=== PATIENT | female | born 1950 | race African-American/Black ===

== ENCOUNTER 2019-05-29 18:03 | Emergency (ER) | payer OTHER ==
[~2019-05-29] VITALS: Ht 162.6 cm; Wt 64.9 kg
[2019-05-29] MEDS ORDERED: CARVEDILOL25 MG PO (18:21)
[2019-05-29 18:46] LABS: ABSOLUTE BASOPHILS 0.1 thou/uL (0.0-0.2); ABSOLUTE EOSINOPHILS 0.2 thou/uL (0.0-0.7); ABSOLUTE LYMPHOCYTES 1.8 thou/uL (0.8-5.3); ABSOLUTE MONOCYTES 0.8 thou/uL (0.0-1.2); ABSOLUTE NEUTROPHILS 5.8 thou/uL (1.6-8.1); BASOPHILS 1.1 %; EOSINOPHILS 1.9 %; HEMATOCRIT 42.4 % (37.0-47.0); HEMOGLOBIN 14.3 gm/dL (12.0-15.0); LYMPHOCYTES 20.5 %; MCHC 33.7 g/dL (28.0-37.0); MCV 80.2 fL (80.0-100.0); MPV 9.5 fl. (7.2-11.1); NUCLEATED RBCS 0 /100WBC; PLATELET COUNT* 305 thou/uL (150-400); POLYS 67.5 %; RBC 5.29 mil/uL (4.20-5.00); RDW-CV 13.5 % (10.5-14.5); WBC 8.6 thou/uL (4.0-11.0)
[2019-05-29 18:55] LABS: CREATININE 1.3 mg/dL (0.6-1.3); POTASSIUM 3.4 mmol/L (3.5-5.1)
[2019-05-29 18:57] LABS: APTT 24.2 Seconds (25.0-31.3); INR 1.1
[2019-05-29 19:00] LABS: ALBUMIN 3.7 g/dL (3.4-5.0); TOTAL BILIRUBIN 0.7 mg/dL (<0.1-1.0); TOTAL PROTEIN 8.5 g/dL (6.4-8.2)
[2019-05-29 19:12] LABS: URINE BILIRUBIN NEGATIVE (Negative); URINE BLOOD TRACE (Negative); URINE CLARITY CLEAR; URINE COLOR YELLOW; URINE GLUCOSE-RANDOM NEGATIVE (Negative); URINE KETONES NEGATIVE (Negative); URINE LEUKOCYTES-REFLEX NEGATIVE (Negative); URINE NITRITE-REFLEX NEGATIVE (Negative); URINE PROTEIN 1+ (Negative)
[2019-05-29 20:47] VITALS: BP 151/103
--- NOTE | 2019-05-30 16:47 | EKG ---
[place] [address] ELECTROCARDIOGRAM REPORT Name: LONNIE HAWKINS Room: [facility]#: [id number] Admission: 05/29/19 Attend Phys: Discharge: 05/29/19 Date of : 48 Date of Service: 05/29/19 182 Report #: [id number] THIS REPORT FOR: //name// [facility] ED Test Date: 2019-05-29 Test Time: 18:28:12 Pat Name: LONNIE HAWKINS Department: Room: Gender: [employer] [place] [facility] [place] 1950 Requested By: Angel Doran Order Number: [id number] Raquel MD: Oscar Buchanan Measurements Intervals [place] Rate: 92 P: 47 VT: 130 QRS: -1 QRSD: 100 T: -87 QT: 338 QTc: 419 Interpretive Statements Sinus rhythm Probable left atrial enlargement Borderline repolarization abnormality, consider anterolateral ichemia No previous ECG available for comparison Electronically Signed On 05-30-2019 16:46:20 [employer] by Oscar Buchanan [email or web address] <ELECTRONICALLY SIGNED> By: Oscar Buchanan MD, [facility] 05/30/19 1646 27 27 Oscar Buchanan MD, FAC /EPI
== END 2019-05-29 20:48 | disposition home or self-care (01) ==
LOC: M.ERS 18:03
PROVIDERS: Personal Emergency Response Attendant
DX: I16.0 Hypertensive urgency (principal); R51 Headache; I10 Essential (primary) hypertension; K21.9 Gastro-esophageal reflux disease without esophagitis; Z86.73 Personal history of transient ischemic attack (TIA), and cerebral infarction without residual deficits